=== PATIENT | female | born 1930 | race Caucasian/White ===

== ENCOUNTER 2017-02-07 18:15 | Inpatient (IN) | payer MEDICARE, OTHER ==
[~2017-02-07] VITALS: Ht 157.5 cm; Wt 68.0 kg
[~2017-02-07 18:15] MED LIST: ATIVAN0.5 MG PO; CATAPRES 0.1MG0.1 MG PO; CITALOPRAM HBR20 MG PO; LEVAQUIN750 MG PO; LORTAB 7.5-3251 EACH PO; OMEPRAZOLE20 MG PO; SPIRONOLACTONE25 MG PO; SYNTHROID100 MCG PO; VITAMIN B-1000 MCG/M IM; VITAMIN D50000 UNIT PO
--- NOTE | 2017-02-08 10:45 | NUR ---
PATIENT WAS UNRESPONIVE AT ADMISSION. PATIENT ON COMFORT CARE. PATIENT AT 0900 AND DECLARED BY MANISH CHAN AND RAISSA BOLTON. BODY RELEASED TO [facility] PER FAMILY WISHES AND LEFT FACILITY AT 1024.
== END 2017-02-08 10:24 | disposition expired | DRG 291 ==
LOC: ER1 18:15 → ZEROF 22:00 → M/S 22:00
PROVIDERS: ADMIT Internal Medicine
DX: I11.0 Hypertensive heart disease with heart failure (principal); E43 Unspecified severe protein-calorie malnutrition; L89.153 Pressure ulcer of sacral region, stage 3; C16.9 Malignant neoplasm of stomach, unspecified; I50.22 Chronic systolic (congestive) heart failure; Z51.5 Encounter for palliative care; Z66 Do not resuscitate; R40.2430 Glasgow coma scale score 3-8, unspecified time; Z99.81 Dependence on supplemental oxygen; Z79.891 Long term (current) use of opiate analgesic; Z79.899 Other long term (current) drug therapy; I95.9 Hypotension, unspecified; E66.9 Obesity, unspecified; E11.9 Type 2 diabetes mellitus without complications; Z87.891 Personal history of nicotine dependence; E03.9 Hypothyroidism, unspecified; E78.5 Hyperlipidemia, unspecified; Z74.01 Bed confinement status; Z68.27 Body mass index [BMI] 27.0-27.9, adult
CPT/HCPCS: 82962; 96374; 96375; 99285; J2270